=== PATIENT | female | born 1985 | race Caucasian/White ===

== ENCOUNTER 2016-11-22 11:34 | Emergency (ER) | payer SELFPAY ==
[~2016-11-22] VITALS: Ht 167.6 cm; Wt 77.0 kg
[~2016-11-22 11:34] MED LIST: PRENAT PO
[2016-11-22 11:39] VITALS: Ht 167.6 cm; Wt 77.0 kg
== END 2016-11-22 15:56 | disposition left against medical advice (07) ==
LOC: FTE 11:34
DX: Z53.21 Procedure and treatment not carried out due to patient leaving prior to being seen by health care provider (principal)